=== PATIENT | male | born 1935 | race Two or more races ===

== ENCOUNTER 2024-10-17 12:38 | Inpatient (IN) | payer BC ==
[~2024-10-17] VITALS: Ht 177.8 cm; Wt 68.0 kg
[~2024-10-17 12:38] MED LIST: LOVA40TA72 PO
--- NOTE | 2024-10-17 12:51 | ED.PDOC ---
HPI Comments 88 year old male presents to the ED via EMS with a chief complaint of palpitations onset 2 days. Patient states he began experiencing palpitations 2 days ago, was cooking this afternoon, began experiencing weakness bilateral legs with a heavy sensation. Patient states last time he experienced similar symptoms, he had cardiac stents placed. Upon ED arrival BP was 139/79, HR 68. PMHx AR, HTN. Denies shortness of breath, dizziness, nausea, vomiting, diarrhea, headache, blurry vision. NO other symptoms or modifying factors present at this time. Time Seen by MD: 12:45 Primary Care Provider: MALCOM Reviewed Notes: Medications, Allergies Allergies: Coded Allergies: NO KNOWN ALLERGIES (Unverified , 02/25/15) Home Meds Reported Medications Lovastatin (Lovastatin) 40 Mg Tab, 1 TAB PO DAILY, #30 TAB 5 Refills 02/27/15 Information Source: Patient, Emergency Med Personnel Mode of Arrival: EMS Severity: Moderate Timing: Days Duration: Since onset Prehospital treatment: None Onset: At Rest Cardiac Risk Factors: HTN History of: Similar pain in past, AR Modifying Factors: Nothing Associated Signs and Symptoms: Palpitations Past Medical History PAST MEDICAL HISTORY: High Lipids Surgical History: Hernia Repair Surgical History (Other): stents Family History Family History: Unknown Social History Smoker: Non-Smoker Alcohol: Denies ETOH Use Drugs: Denies Drug Use Lives In: Home Constitutional: reports: weakness; denies: chills, diaphoresis, fatigue, fever, malaise, sweats, others EENTM: denies: blurred vision, double vision, ear bleeding, ear discharge, ear drainage, ear pain, ear ringing, eye pain, eye redness, hearing loss, mouth pain, mouth swelling, nasal discharge, nose bleeding, nose congestion, nose pain, photophobia, tearing, throat pain, throat swelling, voice changes, others Respiratory: denies: cough, hemoptysis, orthopnea, SOB at rest, shortness of breath, SOB with excertion, stridor, wheezing, others Cardiovascular: reports: palpitations; denies: chest pain, dizzy spells, diaphoresis, Dyspnea on exertion, edema, irregular heart beat, left arm pain, lightheadedness, PND, syncope, others Gastrointestinal: denies: abdomen distended, abdominal pain, blood streaked bowels, constipated, diarrhea, dysphagia, difficulty swallowing, hematemesis, melena, nausea, poor appetite, poor fluid intake, rectal bleeding, rectal pain, vomiting, others Genitourinary: denies: burning, dysuria, flank pain, frequency, hematuria, incontinence, penile discharge, penile sore, pain, testicle pain, testicle swelling, urgency, others Neurological: reports: weakness; denies: dizziness, fainting, headache, left sided numbness, left sided weakness, numbness, paresthesia, pre-existing deficit, right sided numbness, right sided weakness, seizure, speech problems, tingling, tremors, others Musculoskeletal: denies: back pain, gout, joint pain, joint swelling, muscle pain, muscle stiffness, neck pain, others Integumetry: denies: bruises, change in color, change in hair/nails, dryness, laceration, lesions, lumps, rash, wounds, others Allergic/Immunocompromised: denies: Difficulty Healing, Frequent Infections, Hives, Itching, others Hematologic/Lymphatic: denies: anemia, blood clots, easy bleeding, easy bruising, swollen glands, others Endocrine: denies: excessive hunger, excessive sweating, excessive thirst, excessive urination, flushing, intolerance to cold, intolerance to heat, unexplained weight gain, unexplained weight loss, others Psychiatric: denies: anxiety, bipolar disorder, depression, hopeless, panic disorder, schizophrenia, sleepless, suicidal, others All Other Systems: Reviewed and Negative Physical Exam General Appearance: Moderate Distress, Normal HEENT: Normal ENT Inspection, Pharynx Normal, TMs Normal Neck: Full Range of Motion, Non-Tender, Normal, Normal Inspection Respiratory: Chest Non-Tender, Lungs Clear, No Accessory Muscle Use, No Respiratory Distress, Normal Breath Sounds Cardiovascular: No Edema, No JVD, No Murmur, No Gallop, Normal Peripheral Pulses, Regular Rate/Rhythm Breast Exam: Deferred Gastrointestinal: No Organomegaly, Non Tender, No Pulsatile Mass, Normal Bowel Sounds, Soft Genitalia: Deferred Pelvic: Deferred Rectal: Deferred Extremities: No calf tenderness, Normal capillary refill, Normal inspection, Normal range of motion, Non-tender, No pedal edema Musculoskeletal : Apperance: Normal Neurologic: Alert, cassandra consultant II-XII nml as Tested, No Motor Deficits, Normal Affect, Normal Mood, No Sensory Deficits Cerebellar Function: NOT DONE Reflexes: NOT DONE Skin: Dry, Normal Color, Warm Peripheral Pulses: 3+ Radial (R), 3+ Radial (L) Lymphatic: No Adenopathy Was a procedure done? Was a procedure done?: No CP Differential Dx Differential Diagnosis: A-fib, A-Flutter, Angina, Anxiety / Panic Attack, Atrial Dysrhythmia, Electrolyte Disorder X-Ray, Labs, Meds, VS Vital Signs Date Time Temp Pulse Resp B/P (MAP) Pulse Ox O2 Delivery O2 Flow Rate FiO2 10/17/24 12:48 62 10/17/24 12:40 98.7 64 18 134/70 (91) 97 98.7 Patient alert. Complaining of chest pain. Had a run of ventricular tachycardia. Vitals stable. History of cardiac stents. Was seen by Dr. Alcala in the past for his cardiac event. EKG reviewed does not show any acute changes. Possible electrolyte disturbances. Explained to the patient. Continue monitoring. Time of 1ST Reevaluation: 13:15 Reevaluation 1ST: Unchanged Patient Education/Counseling: Diagnosis, Treatment, Prognosis Family Education/Counseling: No Family Present SEPSIS Sepsis Screen Physician Orders Troponin-I Hs (10/17/24 12:47) Complete Blood Count (10/17/24 12:47) Comprehensive Metabolic Panel (10/17/24 12:47) Chest Portable (10/17/24 12:47) Troponin-I Hs (10/17/24 13:47) Troponin-I Hs (10/17/24 15:47) Electrocardigram (10/17/24 13:56) Vital Signs Date Time Temp Pulse Resp B/P (MAP) Pulse Ox O2 Delivery O2 Flow Rate FiO2 10/17/24 12:48 62 10/17/24 12:40 98.7 64 18 134/70 (91) 97 98.7 Departure 1 Departure Time of Disposition: 13:18 Impression: Primary Impression: Chest pain of unknown etiology Disposition: 09 ADMITTED INPATIENT Admit to: Med Surg Condition: Guarded Critical Care Note Critical Care Time?: Yes (90 min-critical care time only) Critical care comment: Had run of ventricular tachycardia continue monitoring Stability Stability form required: No Heart Score Heart Score: Heart Score Response (Comments) Value History Slightly Suspicious 0 EKG Normal 0 Age >65 2 Risk Factors >3 or Hx ASHD 2 Troponin Normal limit 0 Total 4 I personally scribed for DAISHA AJCOBS MD ([email or web address]) on 10/17/24 at 12:51. Electronically submitted by Paulina Restrepo ([email or web address]). DAISHA JACOBS MD Oct 17, 2024 12:51
--- NOTE | 2024-10-17 12:57 | ECG ---
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
[2024-10-17 13:03] VITALS: PULSE 78; RESP 1; O2SAT 99
--- NOTE | 2024-10-17 13:16 | DVH ---
CHEST RADIOGRAPH Indication: sob Technique: Single frontal view of the chest was obtained COMPARISON: None FINDINGS: Lines and Tubes: None Lungs: Clear Pleura: No effusion. No pneumothorax. Cardiomediastinal contours: Unremarkable Bones: Unremarkable IMPRESSION: No acute disease.
--- NOTE | 2024-10-17 13:46 | ECG ---
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
[2024-10-17 14:14] LABS: Alanine Aminotransferase 22 U/L (7-40); Albumin 4.1 g/dL (3.2-4.8); Alkaline Phosphatase 66 U/L (46-116); Anion Gap 8 (5-15); Aspartate Aminotransferase 23 U/L (<34); BUN/Creatinine Ratio 16.9 (10.0-20.0); Blood Urea Nitrogen 22 mg/dL (9-23); Calcium 9.5 mg/dL (8.7-10.4); Carbon Dioxide 28 mmol/L (20-31); Chloride 104 mmol/L (98-107); Glucose 105 mg/dL (74-106); Potassium 4.9 mmol/L (3.5-5.1); Sodium 140 mmol/L (136-145); Total Protein 7.3 g/dL (5.7-8.2)
[2024-10-17 14:15] LABS: Bilirubin, Total 0.9 mg/dL (0.2-1.0)
[2024-10-17 14:18] LABS: Urine Bacteria None Seen /hpf (None Seen)
[2024-10-17 14:26] LABS: Urine Blood Negative /uL (Negative); Urine Clarity Clear (Clear); Urine Color Colorless (Yellow); Urine Protein, UAD Negative (Negative); Urine Specific Gravity 1.007 (1.001-1.035); Urine Squamous Epithelial Cell None Seen /hpf (<5); Urine Urobilinogen Normal (Negative); Urine WBC < 1 /HPF (0-3)
[2024-10-17 14:27] LABS: Basophils # (auto) 0 10 ^3/uL (0-0.2); Basophils % (auto) 0.8 % (0.0-2.0); Eosinophils # (auto) 0.2 10 ^3/uL (0-0.8); Hematocrit 44.4 % (41.0-53.0); Hemoglobin 15.3 g/dL (13.5-17.5); Lymphocytes # (auto) 1.3 10 ^3/uL (0.4-5.4); Lymphocytes % (auto) 23.3 % (10.0-50.0); Mean Corpuscular Hemoglobin 34.3 pg (28.0-32.0); Mean Corpuscular Hgb Conc. 34.5 g/dL (32.0-36.0); Mean Corpuscular Volume 99.4 fL (80.0-100.0); Monocytes # (auto) 0.6 10 ^3/uL (0-1.3); Monocytes % (auto) 10.7 % (0.0-12.0); Neutrophils # (auto) 3.3 10 ^3/uL (1.6-8.6); Neutrophils % (auto) 61.2 % (37.0-80.0); Nucleated Red Blood Cells % 0.1 %; Platelet Count (auto) 197 10^3/uL (140-450); Red Blood Cells 4.47 10^6/uL (4.5-5.90); Red Cell Distribution Width 13.3 % (11.8-14.3); White Blood Cell 5.4 10^3/uL (4.4-10.8)
[2024-10-17] MEDS ORDERED: HYDROcodone-ACET 5/325MG TAB PO PRN (15:30)
[2024-10-17] MEDS ORDERED: ACETAMINOPHEN 325 MG TAB PO PRN (15:30)
[2024-10-17] MEDS ORDERED: DOCUSATE SOD 100 MG CAP PO PRN (15:30)
[2024-10-17] MEDS ORDERED: cloNIDine HCL 0.1 MG TAB PO PRN (15:30)
[2024-10-17] MEDS ORDERED: ONDANSETRON HCL 4 MG/2 ML VIAL IV PRN (15:30)
[2024-10-17] MEDS: ASPirin 81 mg TAB PO ONE (15:49)
--- NOTE | 2024-10-17 16:25 | DVHHP2 ---
History of Present Illness Reason for Visit: Palpitations History of Present Illness The patient is a 88-year-old male with past medical history of hyperlipidemia and hypertension who presented to [facility] ED with complaint of palpitations. Patient reports he has been experiencing palpitations 2 days ago, associated with chest pain, bilateral leg weakness with heavy sensation. Patient states last time he experienced similar symptoms, he had cardiac stents placed. Patient was seen and evaluated in the ED, laboratory data shows WBC 5.4, platelets 197, sodium 140, potassium 4.9, BUN 22, creatinine 1.30, glucose 105, calcium 9.5, troponin nine, blood pressure 135/59, heart rate 60, temperature 97.8 F, O2 saturation 98% on room air. Chest x-ray show no acute disease. Please see medication orders section in the computer. On my assessment, patient denied chest pain, no headache, no dizziness, no diaphoresis, no shortness of breath, no nausea, no vomiting, no fever, no chills. Patient was admitted for further evaluation medical management. Past Medical History High Lipids, HTN Past Surgical History Hernia Repair, Stents Family History Reviewed, noncontributory to the management of this case. Past Social History The patient lives at home, denies smoking, alcohol or illicit drugs abuse. Review of Systems Constitutional: Yes: Weakness; No: Fever, Chills, Sweats, Malaise, Other Eyes: No: Pain, Vision change, Conjunctivae inflammation, Eyelid inflammation, Other, Redness ENT: No: Ear pain, Ear discharge, Nose pain, Nose discharge, Nose congestion, Mouth pain, Mouth swelling, Throat pain, Throat swelling, Other Respiratory: No: Cough, Dry, Shortness of breath, SOB with excertion, Wheezing, Hemoptysis, Pleuritic Pain, Sputum, Wheezing, Other Cardiovascular: Chest Pain, Palpitations; No: Orthopnea, Paroxysmal Noc. Dyspnea, Edema, Lt Headedness, Other Gastrointestinal: No: Nausea, Vomiting, Abdominal Pain, Diarrhea, Constipation, Melena, Hematochezia, Other Genitourinary: No Dysuria, No Frequency, No Incontinence, No Hematuria, No Retention, No Other Musculoskeletal: No: other, neck pain, shoulder pain, arm pain, back pain, hand pain, leg pain, foot pain Skin: No: Rash, Lesions, Jaundice, Bruising, Other Neurological: Weakness; No: Numbness, Incoordination, Change in speech, Confusion, Seizures, Other Allergies: Coded Allergies: NO KNOWN ALLERGIES (Unverified , 02/25/15) Medications Current Medications Medications Dose Ordered Sig/Godfrey Route Start Time Stop Time Status Last Admin Dose Admin Aspirin 81 mg DAILY PO 10/18/24 10:00 Atorvastatin Calcium 10 mg HS PO 10/17/24 22:00 Sodium Chloride 10 ml Q8HR IV 10/17/24 22:00 Acetaminophen/ Hydrocodone Bitart 1 tab Q4HP PRN PO 10/17/24 15:30 Ondansetron HCl 4 mg Q4HP PRN IV 10/17/24 15:30 Docusate Sodium 100 mg BIDPRN PRN PO 10/17/24 15:30 Acetaminophen 650 mg Q6HP PRN PO 10/17/24 15:30 Clonidine HCl 0.1 mg Q4HP PRN PO 10/17/24 15:30 Exam Vital Signs Vital Signs Date Time Temp Pulse Resp B/P (MAP) Pulse Ox O2 Delivery O2 Flow Rate FiO2 10/17/24 14:20 58 13 135/59 (84) 98 10/17/24 13:03 97.8 97.8 10/17/24 13:03 Room Air* 0 21 General Appearance: Alert, Oriented X3, Cooperative, No acute distress HEENT: Atraumatic, PERRLA, EOMI, Mucous membr. moist/pink Respiratory: Normal air movement Cardiovascular: Regular rate, Normal S1, Normal S2, No murmurs Abdominal: Normal bowel sounds, Soft, No tenderness, No hepatospenomegaly, No masses Extremities: No clubbing, No cyanosis, No edema, Normal pulses, No tenderness/swelling Skin: No rashes, No breakdown, No significant lesion Neuro: Normal speech, Normal tone, Sensation intact, Cranial nerves 3-12 NL, Reflexes 2+, Other (Generalized weakness) Psych/Mental Status: Mental status NL, Mood NL Labs/Xrays Labs Test 10/17/24 14:55 10/17/24 14:12 10/17/24 13:44 Range/Units Troponin I High Sensitivity 11 </=54 ng/L Urine Color Colorless Yellow Urine Clarity Clear Clear Urine pH 7.0 5.0-9.0 Urine Specific [place] 1.007 1.001-1.035 Urine Protein Negative Negative Urine Ketones Negative Negative Urine Blood Negative Negative /uL Urine Nitrite Negative Negative Urine Bilirubin Negative Negative Urine Urobilinogen Normal Negative mg/dL Urine Leukocyte Esterase Negative Negative /uL Urine RBC 1 0 - 3 /hpf Urine Microscopic WBC < 1 0-3 /HPF Urine Squamous Epithelial Cells None seen <5 /hpf Urine Bacteria None seen None Seen /hpf Urine Glucose Normal Normal mg/dL White Blood Count 5.4 4.4-10.8 10^3/uL Red Blood Count 4.47 L 4.5-5.90 10^6/uL Hemoglobin 15.3 13.5-17.5 g/dL Hematocrit 44.4 41.0-53.0 % Mean Corpuscular Volume 99.4 80.0-100.0 fL Mean Corpuscular Hemoglobin 34.3 H 28.0-32.0 pg Mean Corpuscular Hemoglobin Concent 34.5 32.0-36.0 g/dL Red Cell Distribution Width 13.3 11.8-14.3 % Platelet Count 197 140-450 10^3/uL Mean Platelet Volume 8.3 6.9-10.8 fL Neutrophils (%) (Auto) 61.2 37.0-80.0 % Lymphocytes (%) (Auto) 23.3 10.0-50.0 % Monocytes (%) (Auto) 10.7 0.0-12.0 % Eosinophils (%) (Auto) 4.0 0.0-7.0 % Basophils (%) (Auto) 0.8 0.0-2.0 % Neutrophils # (Auto) 3.3 1.6-8.6 10 ^3/uL Lymphocytes # (Auto) 1.3 0.4-5.4 10 ^3/uL Monocytes # (Auto) 0.6 0-1.3 10 ^3/uL Eosinophils # (Auto) 0.2 0-0.8 10 ^3/uL Basophils # (Auto) 0 0-0.2 10 ^3/uL Nucleated Red Blood Cells 0.1 % Sodium Level 140 136-145 mmol/L Potassium Level 4.9 3.5-5.1 mmol/L Chloride Level 104 98-107 mmol/L Carbon Dioxide Level 28 20-31 mmol/L Anion Gap 8 5-15 Blood Urea Nitrogen 22 9-23 mg/dL Creatinine 1.30 0.700-1.30 mg/dL Glomerular Filtration Rate Calc 54 >90 mL/min BUN/Creatinine Ratio 16.9 10.0-20.0 Serum Glucose 105 74-106 mg/dL Calcium Level 9.5 8.7-10.4 mg/dL Total Bilirubin 0.9 0.2-1.0 mg/dL Aspartate Amino Transferase (AST) 23 <34 U/L Alanine Aminotransferase (ALT) 22 7-40 U/L Alkaline Phosphatase 66 46-116 U/L Total Protein 7.3 5.7-8.2 g/dL Albumin 4.1 3.2-4.8 g/dL PATIENT: EDY MARCANO EACCT: [id number] UNIT: [id number] : 1935 LOC: ER ROOM / BED: / AGE / SEX: 88 / M ADM STATUS: REG ER SERVICE [id number] ORDERING PHYSICIAN: DAISHA JACOBS MD PROCEDURE(s): CXRP - CHEST PORTABLE REASON: sob ORDER NUMBER(s): [id number], ACCESSION NUMBER(s): [id number] CHEST RADIOGRAPH Indication: sob Technique: Single frontal view of the chest was obtained COMPARISON: None FINDINGS: Lines and Tubes: None Lungs: Clear Pleura: No effusion. No pneumothorax. Cardiomediastinal contours: Unremarkable Bones: Unremarkable IMPRESSION: No acute disease. Assessment/Plan Assessment/Plan Palpitations Generalized weakness Chest pain of unknown etiology Plan 1. Admit to telemetry unit 2. Breathing treatment 3. Pain control management 4. Management of fluids and electrolytes 5. Consultation for hospitalist 6. Diagnostic tests chest x-ray 7. DVT prophylaxis on aspirin 8. Repeat labs CBC, CMP in a.m. 9. Continue with current medical management 10. Treatment plan discussed with patient and RN. Patient verbalized understanding. Plan discussed with: Patient, Other (RN) My Orders Orders - ELMO ABDALLA DNP Procedure Category Date Status Time Aspirin Tablet PHA 10/18/24 In Process 10:00 Atorvastatin (Lipitor) PHA 10/17/24 In Process 22:00 Allergies RASHIDA 10/17/24 In Process 15:18 Code Status CODE 10/17/24 Transmitted 15:18 Sodium Chloride Lock PHA 10/17/24 In Process (Saline Lock Ns) 22:00 Oxygen Per Hour RT 10/17/24 Transmitted 15:18 Hydrocodone-Acet PHA 10/17/24 In Process 5/325mg Tab (Rainelle 15:30 Ondansetron Hcl PHA 10/17/24 In Process (Zofran) 15:30 Docusate Sodium PHA 10/17/24 In Process Capsule (Colace 15:30 Fall Risk Precautions RASHIDA 10/17/[address] 15:18 Complete Blood Count LAB 10/18/24 Verified 04:00 Comprehensive LAB 10/18/24 Verified Metabolic Panel 04:00 Cardiac DIET 10/17/24 Transmitted Diet-2gna,Lofat,Lochol Dinner Condition: Serious RASHIDA 10/17/24 In Process 15:18 Acetaminophen Tablet PHA 10/17/24 In Process (Tylenol Tablet) 15:30 Maintain Bed Rest RASHIDA 10/17/24 In Process 15:18 Sequential RASHIDA 10/17/24 In Process Compression Device Clonidine Hcl Tablet PHA 10/17/24 In Process (Catapres Tablet) 15:30 Admit ADMIT 10/17/24 Verified 16:24 Nitroglycerin [facility] 10/17/24 Verified Sublingual (Ntrostat 16:30 Morphine Sulfate PHA 10/17/24 Verified Injection 16:30 Stat Ekg For Chest [facility] 10/17/24 Verified Pain 16:24 Notify Md Of Changes [facility] 10/17/24 Verified From Base 16:24 Music Rehabilitation Therapist For [facility] 10/17/24 Verified 24 Hours 16:24 Emergency Dysrhythmia [facility] 10/17/24 Verified Protocol 16:24 Rhythm Strips Once [facility] 10/17/24 Verified Every Shift 16:24 Oxygen By Nasal RT 10/17/24 Verified Cannula 16:24 * Cardiology Consult CONS 10/17/24 Verified 16:24 Problem List: (1) Palpitation (2) Generalized weakness (3) Chest pain of unknown etiology Date of Service: Oct 17, 2024 Billing Provider: ELMO ABDALLA DNP Common Visit Codes: [id number] INP/OBS CARE (HIGH) ELMO ABDALLA DNP Oct 17, 2024 16:25
[2024-10-17] MEDS ORDERED: NITROGLYCERIN 0.4 MG SL TAB SL PRN (16:30)
[2024-10-17] MEDS ORDERED: MORPHINE SULFATE INJ 2 MG/ml SYRG IV PRN (16:30)
[2024-10-17 20:26] VITALS: PULSE 78; RESP 20; O2SAT 96
[2024-10-17] MEDS: SODIUM CHLOR 0.9% PF (SALINE LOCK) 10ML VIAL/SYR IV SCH (21:17)
[2024-10-17] MEDS: ATORVASTATIN 20 MG TAB PO SCH (21:18)
[2024-10-17 23:20] VITALS: PULSE 56; RESP 18; O2SAT 98
[2024-10-18] VITALS (8 sets, daily range): BP systolic 110–144; BP diastolic 61–71; PULSE 61–71; RESP 14–20; TEMP 97.3–98.5; O2SAT 86–97
[2024-10-18] MEDS ORDERED: LISI2.5T47 PO (00:56)
[2024-10-18] MEDS ORDERED: ATOR10TA PO (00:56)
[2024-10-18] MEDS ORDERED: ASPI-543 PO (00:56)
[2024-10-18] MEDS ORDERED: SPIR25TA8 PO (00:56)
[2024-10-18] MEDS ORDERED: CARV3.1240 PO (00:56)
[2024-10-18 07:38] LABS: Basophils # (auto) 0 10 ^3/uL (0-0.2); Basophils % (auto) 0.7 % (0.0-2.0); Eosinophils # (auto) 0.2 10 ^3/uL (0-0.8); Eosinophils % (auto) 3.6 % (0.0-7.0); Hematocrit 44.3 % (41.0-53.0); Hemoglobin 15.2 g/dL (13.5-17.5); Lymphocytes # (auto) 1.8 10 ^3/uL (0.4-5.4); Mean Corpuscular Hemoglobin 34.1 pg (28.0-32.0); Mean Corpuscular Hgb Conc. 34.4 g/dL (32.0-36.0); Monocytes # (auto) 0.8 10 ^3/uL (0-1.3); Monocytes % (auto) 13.1 % (0.0-12.0); Neutrophils # (auto) 3.2 10 ^3/uL (1.6-8.6); Neutrophils % (auto) 52.6 % (37.0-80.0); Nucleated Red Blood Cells % 0.2 %; Platelet Count (auto) 187 10^3/uL (140-450); Red Blood Cells 4.47 10^6/uL (4.5-5.90); Red Cell Distribution Width 13.1 % (11.8-14.3)
[2024-10-18 07:44] LABS: Alanine Aminotransferase 13 U/L (7-40); Albumin 3.9 g/dL (3.2-4.8); Alkaline Phosphatase 57 U/L (46-116); Anion Gap 9 (5-15); Aspartate Aminotransferase 20 U/L (<34); BUN/Creatinine Ratio 15.7 (10.0-20.0); Bilirubin, Total 0.9 mg/dL (0.2-1.0); Blood Urea Nitrogen 19 mg/dL (9-23); Calcium 9.9 mg/dL (8.7-10.4); Carbon Dioxide 23 mmol/L (20-31); Chloride 107 mmol/L (98-107); Glucose 93 mg/dL (74-106); Potassium 4.2 mmol/L (3.5-5.1); Sodium 139 mmol/L (136-145); Total Protein 7.1 g/dL (5.7-8.2)
--- NOTE | 2024-10-18 09:39 | DVHINCON2 ---
Date Seen: Oct 18, 2024 Referring Physician AMA Tucker Reason for Consultation Palpitations History of Present Illness This is a pleasant 88-year-old man who presented to the emergency room via EMS with a chief complaint of palpitations since Thursday. The patient complains of progressive intermittent palpitations associated with generalized weakness, heaviness of bilateral lower extremities, increased fatigue, and mild shortness of breath. He underwent multiple 12 lead electrocardiograms x2 revealing a sinus rhythm with progressive anteroseptal ST changes including leads V2-V4. Serial troponin levels are negative. Follows up in the outpatient setting with the primary lead pony rider Dr. Patrick in [place] with latest appointment two years ago and upcoming appointment on 12/22/2024. Denies any further invasive cardiac work-up or stress tests since latest NH in 2014. 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 Past Medical History Past medical history reviewed. No other significant than mentioned above. Past Surgical History PTCA with stent placement to the LAD x 1 SAMANTA, 2014 Family History: Family history: Diabetes mellitus G8 FATHER Family History Family history reviewed. Social History Denies the use of illicit drugs, alcohol, or tobacco use. Allergies: Coded Allergies: NO KNOWN ALLERGIES (Unverified , 02/25/15) Home Meds Reported Medications Spironolactone (Spironolactone) 25 Mg Tab, PO, TAB 10/18/24 Atorvastatin Calcium (Lipitor) 10 Mg Tab, PO, TAB 10/18/24 Carvedilol (Carvedilol) 3.125 Mg Tab, PO BID for 30 Days, MG 10/18/24 Lisinopril (Lisinopril) 2.5 Mg Tab, PO DAILY for 30 Days, MG 10/18/24 Aspirin (Aspir-Low) 81 Mg Tab, 81 MG PO DAILY for 30 Days, MG 10/18/24 Lovastatin (Lovastatin) 40 Mg Tab, 1 TAB PO DAILY, #30 TAB 5 Refills 02/27/15 Home Meds Home medications reviewed. Current Medications Current Medications Medications (Trade) Dose Ordered Sig/Godfrey Route PRN Reason Start Time Stop Time Status Last Admin Aspirin 81 mg DAILY PO 10/18/24 10:00 Atorvastatin Calcium (Lipitor) 10 mg HS PO 10/17/24 22:00 10/17/24 21:18 Sodium Chloride (Saline Lock Ns) 10 ml Q8HR IV 10/17/24 22:00 10/18/24 05:33 Acetaminophen/ Hydrocodone Bitart ([place] 5/325MG Tab) 1 tab Q4HP PRN PO MODERATE PAIN (4-6 PAIN SCALE) 10/17/24 15:30 Ondansetron HCl (Zofran) 4 mg Q4HP PRN IV NAUSEA / VOMITING 10/17/24 15:30 Docusate Sodium (Colace Capsule) 100 mg BIDPRN PRN PO FOR CONSTIPATION 10/17/24 15:30 Acetaminophen (Tylenol Tablet) 650 mg Q6HP PRN PO PAIN SCALE 1-3 OR TEMP>100.4 10/17/24 15:30 Clonidine HCl (Catapres Tablet) 0.1 mg Q4HP PRN PO SBP>150 10/17/24 15:30 Nitroglycerin (Ntrostat Sublingual) 0.4 mg Q5MINP PRN SL FOR CHEST PAIN 10/17/24 16:30 Morphine Sulfate 2 mg Q30M PRN IV FOR CHEST PAIN 10/17/24 16:30 Review of Systems Constitutional: Increased weakness, fatigue Ears, Nose, & Throat: No symptom reported Eyes: No symptom reported Neurological: No symptoms reported Pulmonary/Respiratory: SOB Cardiovascular: Palpitations Gastrointestinal: No symptom reported Genitourinary: No symptom reported Musculoskeletal: No symptom reported Skin: No symptom reported Psychiatric: No symptom reported Endocrine: No symptom reported Hemotologic/Lymphatic: No symptom reported Vital Signs Vital Signs Date Time Temp Pulse Resp B/P (MAP) Pulse Ox O2 Delivery O2 Flow Rate FiO2 10/18/24 05:00 97.9 69 20 125/70 (88) 86 97.9 10/17/24 23:20 Room Air* 0 21 Physical Exam General Appearance: Cooperative. Well developed. Well nourished. In no acute distress Head Exam: Normal inspection Neck Exam: Normal inspection. Non-tender. Normal alignment Pulmonary/Respiratory: Chest non-tender. Clear bilateral breath sounds Cardiovascular/Chest: Regular rate and rhythm. S1, S2. Sinus rhythm with progressive anteroseptal ST changes. No murmurs. No JVD. Peripheral Pulses: 2+ Radial (R). 2+ Radial (L). 2+ Pedal (R). 2+ Pedal (L) Abdominal Exam: Normal bowel sounds. Soft. Nontender. No hepatospenomegaly. No masses Ankle Exam: Negative ankle edema Lower extremities: Negative lower extremity edema Neuro/Mental Status: A&O x4. Coherent Thoughts/Psych: Normal thought pattern. Appropriate mood and affect. Good judgement and insight Appearance: In no acute distress Skin Exam: Normal inspection. Normal color. Warm. Dry Labs/Diagnostic Data Labs Test 10/18/24 06:31 10/17/24 14:55 10/17/24 14:12 Range/Units White Blood Count 6.0 4.4-10.8 10^3/uL Red Blood Count 4.47 L 4.5-5.90 10^6/uL Hemoglobin 15.2 13.5-17.5 g/dL Hematocrit 44.3 41.0-53.0 % Mean Corpuscular Volume 99.0 80.0-100.0 fL Mean Corpuscular Hemoglobin 34.1 H 28.0-32.0 pg Mean Corpuscular Hemoglobin Concent 34.4 32.0-36.0 g/dL Red Cell Distribution Width 13.1 11.8-14.3 % Platelet Count 187 140-450 10^3/uL Mean Platelet Volume 8.7 6.9-10.8 fL Neutrophils (%) (Auto) 52.6 37.0-80.0 % Lymphocytes (%) (Auto) 30.0 10.0-50.0 % Monocytes (%) (Auto) 13.1 H 0.0-12.0 % Eosinophils (%) (Auto) 3.6 0.0-7.0 % Basophils (%) (Auto) 0.7 0.0-2.0 % Neutrophils # (Auto) 3.2 1.6-8.6 10 ^3/uL Lymphocytes # (Auto) 1.8 0.4-5.4 10 ^3/uL Monocytes # (Auto) 0.8 0-1.3 10 ^3/uL Eosinophils # (Auto) 0.2 0-0.8 10 ^3/uL Basophils # (Auto) 0 0-0.2 10 ^3/uL Nucleated Red Blood Cells 0.2 % Sodium Level 139 136-145 mmol/L Potassium Level 4.2 3.5-5.1 mmol/L Chloride Level 107 98-107 mmol/L Carbon Dioxide Level 23 20-31 mmol/L Anion Gap 9 5-15 Blood Urea Nitrogen 19 9-23 mg/dL Creatinine 1.21 0.700-1.30 mg/dL Glomerular Filtration Rate Calc 58 >90 mL/min BUN/Creatinine Ratio 15.7 10.0-20.0 Serum Glucose 93 74-106 mg/dL Calcium Level 9.9 8.7-10.4 mg/dL Total Bilirubin 0.9 0.2-1.0 mg/dL Aspartate Amino Transferase (AST) 20 <34 U/L Alanine Aminotransferase (ALT) 13 7-40 U/L Alkaline Phosphatase 57 46-116 U/L Total Protein 7.1 5.7-8.2 g/dL Albumin 3.9 3.2-4.8 g/dL Troponin I High Sensitivity 11 </=54 ng/L Urine Color Colorless Yellow Urine Clarity Clear Clear Urine pH 7.0 5.0-9.0 Urine Specific [place] 1.007 1.001-1.035 Urine Protein Negative Negative Urine Ketones Negative Negative Urine Blood Negative Negative /uL Urine Nitrite Negative Negative Urine Bilirubin Negative Negative Urine Urobilinogen Normal Negative mg/dL Urine Leukocyte Esterase Negative Negative /uL Urine RBC 1 0 - 3 /hpf Urine Microscopic WBC < 1 0-3 /HPF Urine Squamous Epithelial Cells None seen <5 /hpf Urine Bacteria None seen None Seen /hpf Urine Glucose Normal Normal mg/dL Assessment Palpitations rule out progressive coronary artery disease/tachyarrhythmias Coronary artery disease status post PTCA to the LAD x 1DES, on ASA (2014) Chronic ischemic compensated HFrEF Hypertension Dyslipidemia Plan/Recommendation (Dr. Edmond) Highly suspected for progressive coronary artery disease given clinical presentation and progressive ST-T segment changes to anteroseptal leads. Scheduled for a coronary angiography with left cardiac catheterization on 10/19/[address] Palafox. Risks and benefits of the procedure were discussed with the patient who agrees to proceed with intervention. All questions answered. This information was also provided to daughter Oly over the phone per patient's request. In the meantime obtain a transthoracic echocardiogram to evaluate cardiac function. Continue therapeutic Lovenox, single-antiplatelet therapy, and high-intensity statin. Initiate GDMT for HFrEF and uptitrate as tolerated. Repeat twelve lead electrocardiogram. Monitor ECG changes closely and notify of any tachyarrhythmias. Continue chest pain protocol. Thank you for allowing us to participate in this patient's care. Please call if you have any questions or concerns. Critical care time: 55 min. This medical document was created using an electronic medical record system with voice recognition software and computerized dictation system. Although this document has been carefully reviewed, there might still be some phonetic and typographical errors. Occasional wrong-word or ``sound-alike substitutions may have occurred due to the inherent limitations of voice recognition software. These areas are purely typographical due to imperfections of the software programs and do not reflect any compromise in the patient's medical care. Please read the chart carefully and recognize, using context, where these substitutions have occurred. Plan discussed with: Patient, Other NYHA Physical activity limitations: NA Date of Service: Oct 18, 2024 Billing Provider: BELLO CHACON Cardiology Common Codes: 79722-[id number] CARE 30-74 MIN BELLO CHACON Oct 18, 2024 09:39
[2024-10-18 10:07] LABS: Magnesium 2.1 mg/dL (1.6-2.6)
[2024-10-18] MEDS: ASPirin 81 mg TAB PO SCH (10:23)
[2024-10-18] MEDS: EMPAGLIFLOZIN 10 MG TAB PO SCH (10:23)
[2024-10-18] MEDS: SPIRONOLACTONE 25 MG TAB PO SCH (10:23)
[2024-10-18] MEDS: LISINOPRIL 5 MG TAB PO SCH (10:23)
[2024-10-18] MEDS: CARVEDILOL 3.125 MG TAB PO SCH (10:24)
[2024-10-18] MEDS: ENOXAPARIN SOD 80 MG/0.8ML SYRINGE SC SCH (10:36)
--- NOTE | 2024-10-18 11:08 | ECG ---
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
--- NOTE | 2024-10-18 14:43 | DVHPN2 ---
Reviewed: Care Plan, H&P, Labs, Medications, Previous Orders, Radiology Changes from previous H/P or p: No Changes Eyes: No Pain, No Vision change, No Conjunctivae inflammation, No Eyelid inflammation, No Other, No Redness ENT: No Ear pain, No Ear discharge, No Nose pain, No Nose discharge, No Nose congestion, No Mouth pain, No Mouth swelling, No Throat pain, No Throat swelling, No Other Cardiovascular: Chest Pain, Palpitations; No Orthopnea, No Paroxysmal Noc. Dyspnea, No Edema, No Lt Headedness, No Other Respiratory: No Cough, No Dry, No Shortness of breath, No SOB with excertion, No Wheezing, No Hemoptysis, No Pleuritic Pain, No Sputum, No Other Gastrointestinal: No Nausea, No Vomiting, No Abdominal Pain, No Diarrhea, No Constipation, No Melena, No Hematochezia, No Other Genitourinary: No Dysuria, No Frequency, No Incontinence, No Hematuria, No Retention, No Other Musculoskeletal: No other, No neck pain, No shoulder pain, No arm pain, No back pain, No hand pain, No leg pain, No foot pain Skin: No Rash, No Lesions, No Jaundice, No Bruising, No Other Objective Vitals Vital Signs Date Time Temp Pulse Resp B/P (MAP) Pulse Ox O2 Delivery O2 Flow Rate FiO2 10/18/24 13:00 97.7 65 16 110/68 (82) 97 97.7 10/18/24 08:00 Room Air* 0 21 Intake/Output Intake and Output 10/18/24 07:00 Intake Total 210 ml Output Total 400 ml Balance -190 ml Intake Oral 210 ml Output Urine Total 400 ml Medications Current Medications Medications Dose Ordered Sig/Godfrey Route Start Time Stop Time Status Last Admin Dose Admin Aspirin 81 mg DAILY PO 10/18/24 10:00 10/18/24 10:23 81 MG Sodium Chloride 10 ml Q8HR IV 10/17/24 22:00 10/18/24 05:33 10 ML Acetaminophen/ Hydrocodone Bitart 1 tab Q4HP PRN PO 10/17/24 15:30 Ondansetron HCl 4 mg Q4HP PRN IV 10/17/24 15:30 Docusate Sodium 100 mg BIDPRN PRN PO 10/17/24 15:30 Acetaminophen 650 mg Q6HP PRN PO 10/17/24 15:30 Nitroglycerin 0.4 mg Q5MINP PRN SL 10/17/24 16:30 Morphine Sulfate 2 mg Q30M PRN IV 10/17/24 16:30 Enoxaparin Sodium 70 mg Q12HR SC 10/18/24 10:08 10/18/24 10:36 70 MG Atorvastatin Calcium 40 mg HS PO 10/18/24 22:00 Spironolactone 12.5 mg DAILY PO 10/18/24 10:00 10/18/24 10:23 12.5 MG Carvedilol 3.125 mg Q12HR PO 10/18/24 10:00 10/18/24 10:24 3.125 MG Lisinopril 5 mg DAILY PO 10/18/24 10:00 10/18/24 10:23 5 MG Empaglifozin 10 mg DAILY PO 10/18/24 10:00 10/18/24 10:23 10 MG Laboratory Results Laboratory Tests 10/18/24 06:31 Chemistry Test 10/18/24 06:31 Albumin 3.9 g/dL (3.2-4.8) Calcium Level 9.9 mg/dL (8.7-10.4) Magnesium Level 2.1 mg/dL (1.6-2.6) Total Protein 7.1 g/dL (5.7-8.2) Lipid panel Test 10/18/24 06:31 Cholesterol Level 125 mg/dL (< 200) HDL Cholesterol 40 mg/dL (40-59) Triglycerides Level 114 mg/dL (< 150) Cardiac Markers Test 10/18/24 06:31 B-Type Natriuretic Peptide 46.84 pg/mL (0-100) LFT Test 10/18/24 06:31 Alanine Aminotransferase (ALT) 13 U/L (7-40) Alkaline Phosphatase 57 U/L (46-116) Aspartate Amino Transferase (AST) 20 U/L (<34) Total Bilirubin 0.9 mg/dL (0.2-1.0) HgA1c, TSH Test 10/18/24 06:31 Hemoglobin A1c 5.5 % A1C (<5.7) Thyroid Stimulating Hormone (TSH) 2.40 uIU/mL (0.55-4.78) Urinalysis Test 10/17/24 14:12 Urine Color Colorless (Yellow) Urine Clarity Clear (Clear) Urine pH 7.0 (5.0-9.0) Urine Specific [place] 1.007 (1.001-1.035) Urine Protein Negative (Negative) Urine Ketones Negative (Negative) Urine Blood Negative /uL (Negative) Urine Nitrite Negative (Negative) Urine Bilirubin Negative (Negative) Urine Urobilinogen Normal mg/dL (Negative) Urine Leukocyte Esterase Negative /uL (Negative) Urine RBC 1 /hpf (0 - 3) Urine Microscopic WBC < 1 /HPF (0-3) Urine Squamous Epithelial Cells None seen /hpf (<5) Urine Bacteria None seen /hpf (None Seen) Urine Glucose Normal mg/dL (Normal) Labs and/or images reviewed: Labs reviewed by me, Image(s) reviewed by me Assessment/Plan Assessment/Plan Palpitations rule out progressive coronary artery disease/tachyarrhythmias, cardiology Dr. Palafox planning for left heart catheterization tomorrow Coronary artery disease status post PTCA to the LAD x 1DES, on ASA (2014), Jardiance, lisinopril, Coreg, spironolactone Chronic ischemic compensated HFrEF Hypertension Dyslipidemia: Lipitor Plan discussed with: Patient Date of Service: Oct 18, 2024 Billing Provider: NIKOLAY MAY MD Common Visit Codes: [id number] INP/OBS CARE(HIGH) NIKOLAY MAY MD Oct 18, 2024 14:43
[2024-10-18] MEDS: ATORVASTATIN 20 MG TAB PO SCH (22:19)
--- NOTE | 2024-10-18 23:30 | DVHSR ---
APPROVED REPORT EXAM: Two-dimensional and M-mode echocardiogram with Doppler and color Doppler. Blood Pressure: 125/70 mmHg INDICATION Palpitations RISK FACTORS Height: 70, Weight: 149 DIMENSIONS LVDd4.0 (3.8-5.7cm)LA (2D) (1.9-4.0cm)Aortic Root3.4 (2.0-3.7cm) LVDs3.3 (2.5-4.0cm)LA (MM) (1.9-4.0cm)Aortic Cusp Exc1.8 (1.5-2.0cm) EF (%) 35.0 (55-70%)Rt. Atrium3.4 (1.9-4.0cm)Asc. Aorta cm Mitral Valve MitralMitral Stenosis E wave0.44m/sMV Mean GR.mmHg A wave0.98m/sMV Peak GR.45mmHg E/A ratio0.42D MVAcm2 DECEL [id number] 1/2 Timems Aortic Valve Aortic ValveAortic Stenosis V10.69m/Pippa Mean GR.2mmHg V20.90m/[place] Peak GR.3mmHg LVOT Diameter2.2 (1.8-2.4cm)Doppler AVA2.91cm2 Tricuspid Valve TR Velocity2.41m/s [id number] Other Information Technically limited study due to body habitus and patient position. Conclusion ENTIRE APICAL AND ANTERIOR WALL IS HYPOKINETIC STUDY CONFIRMS PREVIOUS OR RECENT ANTERIOR WALL CT LV EF IS 35% AND IS MODERATELY REDUCED NORMAL VALVES NO EFFUSION NORMAL RV FUNCTION
[2024-10-19] VITALS (9 sets, daily range): BP systolic 101–134; BP diastolic 55–74; PULSE 15–77; RESP 14–20; TEMP 97.5–98.7; O2SAT 94–99
[2024-10-19 06:19] LABS: Basophils # (auto) 0.1 10 ^3/uL (0-0.2); Eosinophils # (auto) 0.2 10 ^3/uL (0-0.8); Mean Corpuscular Volume 98.6 fL (80.0-100.0); Monocytes # (auto) 0.8 10 ^3/uL (0-1.3); Monocytes % (auto) 12.1 % (0.0-12.0); Neutrophils # (auto) 3.9 10 ^3/uL (1.6-8.6); Platelet Count (auto) 190 10^3/uL (140-450)
[2024-10-19 06:23] LABS: Eosinophils % (auto) 3.1 % (0.0-7.0); Hematocrit 43.6 % (41.0-53.0); Hemoglobin 15.1 g/dL (13.5-17.5); Lymphocytes % (auto) 28.1 % (10.0-50.0); Mean Corpuscular Hemoglobin 34.2 pg (28.0-32.0); Mean Corpuscular Hgb Conc. 34.6 g/dL (32.0-36.0); Neutrophils % (auto) 55.7 % (37.0-80.0); Nucleated Red Blood Cells % 0.2 %; Red Blood Cells 4.42 10^6/uL (4.5-5.90); Red Cell Distribution Width 13.1 % (11.8-14.3)
[2024-10-19 06:34] LABS: INR 1.08 (0.9-1.15); Partial Thromboplastin Time 33.8 SEC (24.5-34.5); Prothrombin Time 11.4 sec (9.3-11.8)
[2024-10-19 06:38] LABS: Chloride 102 mmol/L (98-107); Potassium 4.2 mmol/L (3.5-5.1); Sodium 136 mmol/L (136-145)
[2024-10-19 06:39] LABS: Anion Gap 10 (5-15); Carbon Dioxide 24 mmol/L (20-31)
[2024-10-19 06:40] LABS: Calcium 9.2 mg/dL (8.7-10.4)
[2024-10-19 06:44] LABS: Glucose 93 mg/dL (74-106)
[2024-10-19 06:45] LABS: BUN/Creatinine Ratio 18.1 (10.0-20.0); Blood Urea Nitrogen 25 mg/dL (9-23)
--- NOTE | 2024-10-19 08:25 | DVHPN2 ---
Reviewed: Care Plan, H&P, Labs, Medications, Previous Orders, Radiology Changes from previous H/P or p: No Changes Eyes: No Pain, No Vision change, No Conjunctivae inflammation, No Eyelid inflammation, No Other, No Redness ENT: No Ear pain, No Ear discharge, No Nose pain, No Nose discharge, No Nose congestion, No Mouth pain, No Mouth swelling, No Throat pain, No Throat swelling, No Other Cardiovascular: Chest Pain, Palpitations; No Orthopnea, No Paroxysmal Noc. Dyspnea, No Edema, No Lt Headedness, No Other Respiratory: No Cough, No Dry, No Shortness of breath, No SOB with excertion, No Wheezing, No Hemoptysis, No Pleuritic Pain, No Sputum, No Other Gastrointestinal: No Nausea, No Vomiting, No Abdominal Pain, No Diarrhea, No Constipation, No Melena, No Hematochezia, No Other Genitourinary: No Dysuria, No Frequency, No Incontinence, No Hematuria, No Retention, No Other Musculoskeletal: No other, No neck pain, No shoulder pain, No arm pain, No back pain, No hand pain, No leg pain, No foot pain Skin: No Rash, No Lesions, No Jaundice, No Bruising, No Other Objective Vitals Vital Signs Date Time Temp Pulse Resp B/P (MAP) Pulse Ox O2 Delivery O2 Flow Rate FiO2 10/19/24 05:00 97.5 64 14 117/61 (79) 97 97.5 10/18/24 20:00 Room Air* 0 21 Intake/Output Intake and Output 10/19/24 07:00 Intake Total 490 ml Output Total 400 ml Balance 90 ml Intake Oral 490 ml Output Urine Total 400 ml # Voids 2 Medications Current Medications Medications Dose Ordered Sig/Godfrey Route Start Time Stop Time Status Last Admin Dose Admin Aspirin 81 mg DAILY PO 10/18/24 10:00 10/18/24 10:23 81 MG Sodium Chloride 10 ml Q8HR IV 10/17/24 22:00 10/19/24 06:43 10 ML Acetaminophen/ Hydrocodone Bitart 1 tab Q4HP PRN PO 10/17/24 15:30 Ondansetron HCl 4 mg Q4HP PRN IV 10/17/24 15:30 Docusate Sodium 100 mg BIDPRN PRN PO 10/17/24 15:30 Acetaminophen 650 mg Q6HP PRN PO 10/17/24 15:30 Nitroglycerin 0.4 mg Q5MINP PRN SL 10/17/24 16:30 Morphine Sulfate 2 mg Q30M PRN IV 10/17/24 16:30 Enoxaparin Sodium 70 mg Q12HR SC 10/18/24 10:08 10/18/24 22:20 70 MG Atorvastatin Calcium 40 mg HS PO 10/18/24 22:00 10/18/24 22:19 40 MG Spironolactone 12.5 mg DAILY PO 10/18/24 10:00 10/18/24 10:23 12.5 MG Carvedilol 3.125 mg Q12HR PO 10/18/24 10:00 10/18/24 22:19 3.125 MG Lisinopril 5 mg DAILY PO 10/18/24 10:00 10/18/24 10:23 5 MG Empaglifozin 10 mg DAILY PO 10/18/24 10:00 10/18/24 10:23 10 MG Laboratory Results Laboratory Tests 10/19/24 05:52 Chemistry Test 10/19/24 05:52 Calcium Level 9.2 mg/dL (8.7-10.4) Coagulation Test 10/19/24 05:52 Prothrombin Time 11.4 sec (9.3-11.8) Prothrombin Time INR 1.08 (0.9-1.15) Activated Partial Thromboplast Time 33.8 SEC (24.5-34.5) Urinalysis Test 10/17/24 14:12 Urine Color Colorless (Yellow) Urine Clarity Clear (Clear) Urine pH 7.0 (5.0-9.0) Urine Specific [place] 1.007 (1.001-1.035) Urine Protein Negative (Negative) Urine Ketones Negative (Negative) Urine Blood Negative /uL (Negative) Urine Nitrite Negative (Negative) Urine Bilirubin Negative (Negative) Urine Urobilinogen Normal mg/dL (Negative) Urine Leukocyte Esterase Negative /uL (Negative) Urine RBC 1 /hpf (0 - 3) Urine Microscopic WBC < 1 /HPF (0-3) Urine Squamous Epithelial Cells None seen /hpf (<5) Urine Bacteria None seen /hpf (None Seen) Urine Glucose Normal mg/dL (Normal) Labs and/or images reviewed: Labs reviewed by me, Image(s) reviewed by me Assessment/Plan Assessment/Plan Palpitations rule out progressive coronary artery disease/tachyarrhythmias, cardiology Dr. Palafox planning for left heart catheterization today Coronary artery disease status post PTCA to the LAD x 1DES, on ASA (2014), Jardiance, lisinopril, Coreg, spironolactone Chronic ischemic compensated HFrEF Hypertension Dyslipidemia: Lipitor Plan discussed with: Patient Date of Service: Oct 19, 2024 Billing Provider: NIKOLAY MAY MD Common Visit Codes: [id number] INP/OBS CARE(HIGH) NIKOLAY MAY MD Oct 19, 2024 08:25
[2024-10-19 11:04] LABS: Hepatitis B Surface Antigen Negative (Negative); Hepatitis C Antibody Negative (Negative)
[2024-10-19] MEDS: IODIXANOL 320MG/ML 100ML BTL IV ONE (13:08)
[2024-10-19] MEDS: fentaNYL CITRATE 100 MCG/2 ML VL ONE (13:12)
[2024-10-19] MEDS: VERAPAMIL 2.5MG/ML INJ 2ML VIAL IV ONE (13:12)
[2024-10-19] MEDS: SODIUM CHL 0.9% 0 ML ONE (13:12)
[2024-10-19] MEDS: HEPARIN SODIUM (PORCINE) 5000 UNITS/ML 1ML VIAL ONE (13:12)
[2024-10-19] MEDS: ANGIOMAX 250 MG VIAL IV ONE ×2 (13:12→15:23)
[2024-10-19] MEDS: MIDAZOLAM HCL 2MG/2ML 2ml VIAL (1mg/ml) ONE (13:12)
[2024-10-19] MEDS: LIDOCAINE 2%HCL (LOCAL ANESTH.) INJ 20ML MDV ONE (13:13)
[2024-10-19] MEDS: PHENYLEPHRINE HCL 10 MG/ML VL ONE (13:58)
[2024-10-19] MEDS: SODIUM CHL 0.9% 50 ML ONE (15:23)
[2024-10-19] MEDS: ASPirin 325 MG TAB ONE (15:23)
[2024-10-19] MEDS: CLOPIDOGREL BISULFATE 75 MG TAB ONE (15:24)
--- NOTE | 2024-10-19 15:43 | DVHOP2 ---
Operative Report - 2 Report Details Date: 10/19/24 Preop Diagnosis: CAD Postop Diagnosis: Coronary artery disease. Status post stenting of LAD and circumflex coronary artery. Surgeon: Jaylan Palafox MD Anesthesiologist: Conscious sedation Anesthesia: Mac, Local Consent: The patient was informed of the risks and benefits of the procedure. These include but are not limited to complications of anesthesia, postoperative infection, incomplete relief of symptoms, recurrence of symptoms, damage to blood vessels, nerves and tendons, deep venous thrombosis, pulmonary embolism and possible need for repeat surgery in the future. Complications: No complications Findings: CAD, cardiomyopathy Indications for Surgery: Chest pain Name of Procedure Performed Left heart catheterization bilateral cine coronary angiography. Left ventriculography. PTCA and stenting of the LAD and proximal circumflex. Procedure Details Procedure Details: Prior local anesthesia with 2% lidocaine to the right wrist and full informed consent obtained the patient was prepped and draped in the usual fashion followed by placement of a six [place] sheath into the right radial artery through which a eMinor catheter was used for ventriculography and cannulation of both right and left coronary ostia. A 4-0 EBU guide was used for angiography and PTCA and stenting of the LAD and circumflex coronary artery. Associated procedures included intravascular ultrasound evaluation of the LAD and proximal circumflex pre and post stenting. Hemodynamics aortic blood pressure was 90/50. End-diastolic pressure was five. 100 mcg of Nikita-Synephrine were given pre stenting given low blood pressure. Patient tolerated the procedure well there were no complications Coronary anatomy: The RCA is a large vessel it is dominant. It is normal in its proximal mid and distal segments. The PDA and posterolateral branches are normal. Knee Saint left main is large and normal. Left anterior descending is a large vessel it has a proximal 90% stenosis final tandem 85-90% stenosis at the origin of the stented segment. The mid and distal segments are free of significant disease as are the diagonals. The circumflex is large with a proximal 75-80% lesion. Diminished flow noted. Significant ingrowth in the proximal and ostial segment of the circumflex. Mid and distal segments are free of significant disease Ventriculography in the GARCIA projection shows anterior apical hypokinesis of severe degree EF of about 35%. Angioplasty was performed for which a 4-0 EBU guide was placed. A Specter wire placed across the LAD. Intravascular ultrasound performed. We did pre dilate the two segments with a three five balloon. We then placed a 4-0 by eight stent at the proximal to mid LAD and a 4-0 by eight at the ostial to proximal segment. There was no overlap of the stents. Intravascular ultrasound postprocedure del ineate adequate apposition of the stent struts to the LAD The circumflex was then addressed at which point we also performed intravascular ultrasound found the artery to be a proximally 2.5 mm vessel. We did pre- dilated with a 2.5 mm balloon and then stented with a 2.5 by 12 mm stent proximally. There was a small dissection outside of the stent. Intravascular ultrasound revealed adequate apposition of the stent in its ostial and proximal portions. The distal segment of the stent at adequate apposition as well. It appears that there was a defect within the proximal and distal stent that shows to be a filling defect without chromo flow anomaly. There was excellent antegrade flow without thrombus formation and/or dissection. Impression: Successful PTCA and stenting of the LAD and circumflex. Decreased left ventricular ejection fraction. Normal end-diastolic pressures. Severe CAD involving the circumflex and LAD as noted. Recommendations: Risk factor modification dual antiplatelet therapy. Condition Good Disposition Still a Patient Date of Service: Oct 19, 2024 Billing Provider: JAYLAN PALAFOX Sr., MD Cardiology Common Codes: [id number] INP/OBS CARE (High) Cardiology Procedure Codes: [id number] VESSEL W/I VASC FAM, 28409 -PTCA W/STENT PLACEMENT, 91271-OHSW ADD CORONARY BRANCH, 75152-ATSB HEART CATH W/INTRA INJ JAYLAN PALAOFX Sr., MD Oct 19, 2024 15:43
[2024-10-20] VITALS (7 sets, daily range): BP systolic 104–120; BP diastolic 53–62; PULSE 68–85; RESP 16–18; TEMP 36.7; O2SAT 95–98
[2024-10-20 07:40] LABS: Basophils # (auto) 0 10 ^3/uL (0-0.2); Eosinophils # (auto) 0.1 10 ^3/uL (0-0.8); Mean Corpuscular Hgb Conc. 35.2 g/dL (32.0-36.0); Neutrophils # (auto) 4.6 10 ^3/uL (1.6-8.6); Platelet Count (auto) 184 10^3/uL (140-450); White Blood Cell 7.1 10^3/uL (4.4-10.8)
[2024-10-20 07:43] LABS: Basophils % (auto) 0.4 % (0.0-2.0); Eosinophils % (auto) 1.8 % (0.0-7.0); Hematocrit 43.9 % (41.0-53.0); Hemoglobin 15.4 g/dL (13.5-17.5); Lymphocytes # (auto) 1.4 10 ^3/uL (0.4-5.4); Mean Corpuscular Hemoglobin 34.5 pg (28.0-32.0); Mean Corpuscular Volume 97.9 fL (80.0-100.0); Monocytes % (auto) 14.2 % (0.0-12.0); Neutrophils % (auto) 64.6 % (37.0-80.0); Nucleated Red Blood Cells % 0.1 %; Red Blood Cells 4.48 10^6/uL (4.5-5.90); Red Cell Distribution Width 13.1 % (11.8-14.3)
[2024-10-20 08:01] LABS: Alanine Aminotransferase 13 U/L (7-40); Albumin 3.9 g/dL (3.2-4.8); Alkaline Phosphatase 63 U/L (46-116); Anion Gap 12 (5-15); Aspartate Aminotransferase 28 U/L (<34); BUN/Creatinine Ratio 18.8 (10.0-20.0); Calcium 9.7 mg/dL (8.7-10.4); Carbon Dioxide 22 mmol/L (20-31); Chloride 103 mmol/L (98-107); Glucose 80 mg/dL (74-106); Potassium 4.1 mmol/L (3.5-5.1); Sodium 137 mmol/L (136-145)
[2024-10-20 08:02] LABS: Bilirubin, Total 1.2 mg/dL (0.2-1.0); Blood Urea Nitrogen 25 mg/dL (9-23)
--- NOTE | 2024-10-20 08:28 | DVHPN2 ---
Reviewed: Care Plan, H&P, Labs, Medications, Previous Orders, Radiology Changes from previous H/P or p: No Changes Eyes: No Pain, No Vision change, No Conjunctivae inflammation, No Eyelid inflammation, No Other, No Redness ENT: No Ear pain, No Ear discharge, No Nose pain, No Nose discharge, No Nose congestion, No Mouth pain, No Mouth swelling, No Throat pain, No Throat swelling, No Other Cardiovascular: Chest Pain, Palpitations; No Orthopnea, No Paroxysmal Noc. Dyspnea, No Edema, No Lt Headedness, No Other Respiratory: No Cough, No Dry, No Shortness of breath, No SOB with excertion, No Wheezing, No Hemoptysis, No Pleuritic Pain, No Sputum, No Other Gastrointestinal: No Nausea, No Vomiting, No Abdominal Pain, No Diarrhea, No Constipation, No Melena, No Hematochezia, No Other Genitourinary: No Dysuria, No Frequency, No Incontinence, No Hematuria, No Retention, No Other Musculoskeletal: No other, No neck pain, No shoulder pain, No arm pain, No back pain, No hand pain, No leg pain, No foot pain Skin: No Rash, No Lesions, No Jaundice, No Bruising, No Other Objective Vitals Vital Signs Date Time Temp Pulse Resp B/P (MAP) Pulse Ox O2 Delivery O2 Flow Rate FiO2 10/20/24 08:17 18 95 Room Air* 0 21 10/20/24 05:00 98.8 79 104/53 (70) 98.8 Intake/Output Intake and Output 10/20/24 07:00 Intake Total 740 ml Output Total 350 ml Balance 390 ml Intake Oral 740 ml Output Urine Total 350 ml # Voids 3 Medications Current Medications Medications Dose Ordered Sig/Godfrey Route Start Time Stop Time Status Last Admin Dose Admin Aspirin 81 mg DAILY PO 10/18/24 10:00 10/19/24 10:05 81 MG Sodium Chloride 10 ml Q8HR IV 10/17/24 22:00 10/20/24 05:51 10 ML Acetaminophen/ Hydrocodone Bitart 1 tab Q4HP PRN PO 10/17/24 15:30 Ondansetron HCl 4 mg Q4HP PRN IV 10/17/24 15:30 Docusate Sodium 100 mg BIDPRN PRN PO 10/17/24 15:30 Acetaminophen 650 mg Q6HP PRN PO 10/17/24 15:30 Nitroglycerin 0.4 mg Q5MINP PRN SL 10/17/24 16:30 Morphine Sulfate 2 mg Q30M PRN IV 10/17/24 16:30 Atorvastatin Calcium 40 mg HS PO 10/18/24 22:00 10/19/24 21:44 40 MG Spironolactone 12.5 mg DAILY PO 10/18/24 10:00 10/18/24 10:23 12.5 MG Carvedilol 3.125 mg Q12HR PO 10/18/24 10:00 10/19/24 21:44 3.125 MG Lisinopril 5 mg DAILY PO 10/18/24 10:00 10/19/24 10:05 5 MG Empaglifozin 10 mg DAILY PO 10/18/24 10:00 10/19/24 10:04 10 MG Clopidogrel Bisulfate 75 mg DAILY PO 10/20/24 10:00 Laboratory Results Laboratory Tests 10/20/24 05:58 Chemistry Test 10/20/24 05:58 Albumin 3.9 g/dL (3.2-4.8) Calcium Level 9.7 mg/dL (8.7-10.4) Total Protein 7.0 g/dL (5.7-8.2) LFT Test 10/20/24 05:58 Alanine Aminotransferase (ALT) 13 U/L (7-40) Alkaline Phosphatase 63 U/L (46-116) Aspartate Amino Transferase (AST) 28 U/L (<34) Total Bilirubin 1.2 mg/dL (0.2-1.0) H Urinalysis Test 10/17/24 14:12 Urine Color Colorless (Yellow) Urine Clarity Clear (Clear) Urine pH 7.0 (5.0-9.0) Urine Specific [place] 1.007 (1.001-1.035) Urine Protein Negative (Negative) Urine Ketones Negative (Negative) Urine Blood Negative /uL (Negative) Urine Nitrite Negative (Negative) Urine Bilirubin Negative (Negative) Urine Urobilinogen Normal mg/dL (Negative) Urine Leukocyte Esterase Negative /uL (Negative) Urine RBC 1 /hpf (0 - 3) Urine Microscopic WBC < 1 /HPF (0-3) Urine Squamous Epithelial Cells None seen /hpf (<5) Urine Bacteria None seen /hpf (None Seen) Urine Glucose Normal mg/dL (Normal) Labs and/or images reviewed: Labs reviewed by me, Image(s) reviewed by me Assessment/Plan Assessment/Plan Palpitations rule out progressive coronary artery disease/tachyarrhythmias Left heart catheterization with stenting of LAD and proximal circumflex by Dr. Palafox on 10/19/2024 Coronary artery disease status post PTCA to the LAD x 1DES, on ASA (2014), Jardiance, lisinopril, Coreg, spironolactone Chronic ischemic compensated HFrEF Hypertension Dyslipidemia: Lipitor Patient feels better with stable vital signs Plan discussed with: Patient Date of Service: Oct 20, 2024 Billing Provider: NIKOLAY MAY MD Common Visit Codes: [id number] INP/OBS CARE(HIGH) NIKOLAY MAY MD Oct 20, 2024 08:28
[2024-10-20] MEDS ORDERED: CLOP75TA28 PO (08:33)
[2024-10-20] MEDS ORDERED: EMPA1TAB PO (08:33)
--- NOTE | 2024-10-20 08:39 | DVHDS2 ---
Discharge Summary Date of Admission Oct 17, 2024 at 16:24 Date of Discharge: Oct 20, 2024 Admitting Diagnosis Palpitations and chest pain Wounds: Left heart catheterization Labs/Diagnostic Data: Laboratory Results Test 10/20/24 05:58 10/19/24 05:52 10/18/24 06:31 10/17/24 14:55 White Blood Count 7.1 10^3/uL (4.4-10.8) Red Blood Count 4.48 10^6/uL (4.5-5.90) Hemoglobin 15.4 g/dL (13.5-17.5) Hematocrit 43.9 % (41.0-53.0) Mean Corpuscular Volume 97.9 fL (80.0-100.0) Mean Corpuscular Hemoglobin 34.5 pg (28.0-32.0) Mean Corpuscular Hemoglobin Concent 35.2 g/dL (32.0-36.0) Red Cell Distribution Width 13.1 % (11.8-14.3) Platelet Count 184 10^3/uL (140-450) Mean Platelet Volume 8.7 fL (6.9-10.8) Neutrophils (%) (Auto) 64.6 % (37.0-80.0) Lymphocytes (%) (Auto) 19.0 % (10.0-50.0) Monocytes (%) (Auto) 14.2 % (0.0-12.0) Eosinophils (%) (Auto) 1.8 % (0.0-7.0) Basophils (%) (Auto) 0.4 % (0.0-2.0) Neutrophils # (Auto) 4.6 10 ^3/uL (1.6-8.6) Lymphocytes # (Auto) 1.4 10 ^3/uL (0.4-5.4) Monocytes # (Auto) 1.0 10 ^3/uL (0-1.3) Eosinophils # (Auto) 0.1 10 ^3/uL (0-0.8) Basophils # (Auto) 0 10 ^3/uL (0-0.2) Nucleated Red Blood Cells 0.1 % Sodium Level 137 mmol/L (136-145) Potassium Level 4.1 mmol/L (3.5-5.1) Chloride Level 103 mmol/L (98-107) Carbon Dioxide Level 22 mmol/L (20-31) Anion Gap 12 (5-15) Blood Urea Nitrogen 25 mg/dL (9-23) Creatinine 1.33 mg/dL (0.700-1.30) Glomerular Filtration Rate Calc 52 mL/min (>90) BUN/Creatinine Ratio 18.8 (10.0-20.0) Serum Glucose 80 mg/dL (74-106) Calcium Level 9.7 mg/dL (8.7-10.4) Total Bilirubin 1.2 mg/dL (0.2-1.0) Aspartate Amino Transferase (AST) 28 U/L (<34) Alanine Aminotransferase (ALT) 13 U/L (7-40) Alkaline Phosphatase 63 U/L (46-116) Total Protein 7.0 g/dL (5.7-8.2) Albumin 3.9 g/dL (3.2-4.8) Prothrombin Time 11.4 sec (9.3-11.8) Prothrombin Time INR 1.08 (0.9-1.15) Activated Partial Thromboplast Time 33.8 SEC (24.5-34.5) Hemoglobin A1c 5.5 % A1C (<5.7) Magnesium Level 2.1 mg/dL (1.6-2.6) B-Type Natriuretic Peptide 46.84 pg/mL (0-100) Triglycerides Level 114 mg/dL (< 150) Cholesterol Level 125 mg/dL (< 200) LDL Cholesterol 69 mg/dL (< 100) HDL Cholesterol 40 mg/dL (40-59) Thyroid Stimulating Hormone (TSH) 2.40 uIU/mL (0.55-4.78) Hepatitis B Surface Antigen Negative (Negative) Hepatitis C Antibody Negative (Negative) Troponin I High Sensitivity 11 ng/L (</=54) Test 10/17/24 14:12 Urine Color Colorless (Yellow) Urine Clarity Clear (Clear) Urine pH 7.0 (5.0-9.0) Urine Specific [place] 1.007 (1.001-1.035) Urine Protein Negative (Negative) Urine Ketones Negative (Negative) Urine Blood Negative /uL (Negative) Urine Nitrite Negative (Negative) Urine Bilirubin Negative (Negative) Urine Urobilinogen Normal mg/dL (Negative) Urine Leukocyte Esterase Negative /uL (Negative) Urine RBC 1 /hpf (0 - 3) Urine Microscopic WBC < 1 /HPF (0-3) Urine Squamous Epithelial Cells None seen /hpf (<5) Urine Bacteria None seen /hpf (None Seen) Urine Glucose Normal mg/dL (Normal) Other Laboratory Tests 10/20/24 05:58 Brief Hx & Hospital Course: 88-year-old male with a history of coronary artery disease status post stents in 2014 congestive heart failure hypertension hypercholesterolemia came in complaining of palpitations chest pain. Underwent left heart catheterization by Dr. Palafox with the stenting of LAD and circumflex. Started on Plavix and Jardiance home medications lisinopril Coreg and spironolactone continued. Postop patient feels better with stable vital signs being discharged home. Prescription for Plavix and Jardiance [facility] Consults/Reason for consult Cardiology Dr. Palafox Operations or Procedures Left heart catheterization Condition at Discharge: Fair Final Diagnosis/Problems List Palpitations secondary to progressive coronary artery disease/tachyarrhythmias Left heart catheterization with stenting of LAD and proximal circumflex by Dr. 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 Palafox in two weeks Medications: Plavix Jardiance [facility] Reviewed all other home medications 39 (Time taken for discharge summary 39 minutes) Discharge Statement: "Patient was advised to return to the ER or call 911 if any headaches, dizziness, shortness of breath, chest pain, abdominal pain, bleeding, fevers, or worsening of medical condition. Patient was counseled about treatment plan, medications, possible side effects, patientverbalized understanding. All questions were answered to the best of my ability. This discharge took greater then 30 minutes in planning, reviewing documentation, counseling the patient, and discussing with other team members." ASSESSMENT ASSESSMENT Hospital Course Uneventful Assessment Palpitations secondary to progressive coronary artery disease/tachyarrhythmias Left heart catheterization with stenting of LAD and proximal circumflex by Dr. Palafox on 10/19/2024 Coronary artery disease status post PTCA to the LAD x 1DES, on ASA (2015), Jardiance, lisinopril, Coreg, spironolactone Chronic ischemic compensated HFrEF Hypertension Dyslipidemia: Lipitor Date of Service: Oct 20, 2024 Billing Provider: NIKOLAY MAY MD Common Visit Codes: [id number] DISCH DAY >30min NIKOLAY MAY MD Oct 20, 2024 08:39
[2024-10-20] MEDS: CLOPIDOGREL BISULFATE 75 MG TAB PO SCH (10:33)
== END 2024-10-20 14:45 | disposition home or self-care (01) | DRG 321 ==
LOC: ER 12:38 → EDBD 12:38 → OVERFLOW 16:24 → TELE-CENTR 21:52
PROVIDERS: ADMIT Family Medicine; ATTEND Family Medicine
PROC: 027135Z Dilation of Coronary Artery, Two Arteries with Two Drug-eluting Intraluminal Devices, Percutaneous Approach (ICD-10-PCS; principal; 2024-10-19)
PROC: 4A033BC Measurement of Arterial Pressure, Coronary, Percutaneous Approach (ICD-10-PCS; 2024-10-19)
PROC: B241ZZ3 Ultrasonography of Multiple Coronary Arteries, Intravascular (ICD-10-PCS; 2024-10-19)
PROC: 4A023N7 Measurement of Cardiac Sampling and Pressure, Left Heart, Percutaneous Approach (ICD-10-PCS; 2024-10-19)
PROC: B211YZZ Fluoroscopy of Multiple Coronary Arteries using Other Contrast (ICD-10-PCS; 2024-10-19)
PROC: B215YZZ Fluoroscopy of Left Heart using Other Contrast (ICD-10-PCS; 2024-10-19)
DX: I25.10 Atherosclerotic heart disease of native coronary artery without angina pectoris (principal); I50.23 Acute on chronic systolic (congestive) heart failure; I11.0 Hypertensive heart disease with heart failure; I25.5 Ischemic cardiomyopathy; E78.00 Pure hypercholesterolemia, unspecified; Z83.3 Family history of diabetes mellitus; Z95.5 Presence of coronary angioplasty implant and graft; Z79.82 Long term (current) use of aspirin; Z79.899 Other long term (current) drug therapy
CPT/HCPCS: 36415; 71045; 80048; 80053; 80061; 81001; 83036; 83735; 83880; 84443; 84484; 85025; 85610; 85730; 86803; 87340; 92928; 92929; 92978; 92979; 93005; 93306; 93458; 93571; 99152; 99291; 99292; C1874; G0378; J2250; Q9967